=== PATIENT | female | born 1980 | race African-American/Black ===

== ENCOUNTER 2017-02-15 23:33 | Emergency (ER) | payer OTHER, MEDICAID ==
[~2017-02-15] VITALS: Ht 149.9 cm; Wt 82.0 kg
[2017-02-16 01:58] VITALS: BP 120/73
[2017-02-16] MEDS ORDERED: CYCLOBENZAPRINE 10MG TABLET PO ONE (02:00)
[2017-02-16] MEDS ORDERED: KETOROLAC 60MG/2ML VIAL IM ONE (02:00)
== END 2017-02-16 02:31 | disposition home or self-care (01) ==
LOC: ER 23:33
DX: G89.29 Other chronic pain (principal); M54.5 Low back pain; F12.10 Cannabis abuse, uncomplicated
CPT/HCPCS: 96372; 99283; J1885

== ENCOUNTER 2017-05-01 23:23 | Emergency (ER) | payer OTHER, MEDICAID ==
[~2017-05-01] VITALS: Ht 149.9 cm; Wt 75.0 kg
[2017-05-02] MEDS ORDERED: KETOROLAC 30MG/ML VIAL IM ONE (01:30)
[2017-05-02 03:50] VITALS: BP 115/84
== END 2017-05-02 03:50 | disposition home or self-care (01) ==
LOC: ER 23:24
DX: J06.9 Acute upper respiratory infection, unspecified (principal); I10 Essential (primary) hypertension; F12.90 Cannabis use, unspecified, uncomplicated
CPT/HCPCS: 71010; 87804; 96372; 99285; J1885